=== PATIENT | female | born 1990 | race Two or more races ===

== ENCOUNTER 2020-02-07 14:11 | Emergency (ER) | payer OTHER ==
[~2020-02-07] VITALS: Ht 149.9 cm; Wt 46.3 kg
== END 2020-02-07 21:09 | disposition home or self-care (01) ==
LOC: ER 14:11
DX: S61.224A Laceration with foreign body of right ring finger without damage to nail, initial encounter (principal); W20.8XXA Other cause of strike by thrown, projected or falling object, initial encounter; Y93.89 Activity, other specified; Y92.810 Car as the place of occurrence of the external cause; Y99.8 Other external cause status

== ENCOUNTER 2025-04-15 09:32 | Outpatient (CLI) | payer OTHER | END 2025-04-15 09:33 | disposition home or self-care (01) | LOC: PRENATAL 09:32 | PROVIDERS: ATTEND Obstetrics & Gynecology Maternal & Fetal Medicine | DX: O36.80X0 Pregnancy with inconclusive fetal viability, not applicable or unspecified (principal); Z36.82 Encounter for antenatal screening for nuchal translucency; Z3A.12 12 weeks gestation of pregnancy ==

== ENCOUNTER 2025-06-02 08:30 | Outpatient (CLI) | payer OTHER | END 2025-06-02 08:41 | disposition home or self-care (01) | LOC: PRENATAL 08:30 | PROVIDERS: ATTEND Obstetrics & Gynecology Maternal & Fetal Medicine | DX: O44.02 Complete placenta previa NOS or without hemorrhage, second trimester (principal); O28.3 Abnormal ultrasonic finding on antenatal screening of mother; Z3A.18 18 weeks gestation of pregnancy ==